=== PATIENT | male | born 1995 | race Caucasian/White ===

== ENCOUNTER 2019-10-21 23:40 | Emergency (ER) | payer OTHER ==
[~2019-10-21] VITALS: Ht 182.9 cm; Wt 95.3 kg
[2019-10-22 00:43] VITALS: BP 136/89
== END 2019-10-22 00:44 | disposition home or self-care (01) ==
LOC: M.ERS 23:40
DX: S91.312A Laceration without foreign body, left foot, initial encounter (principal); F17.200 Nicotine dependence, unspecified, uncomplicated; W26.0XXA Contact with knife, initial encounter; Y92.89 Other specified places as the place of occurrence of the external cause; Y93.89 Activity, other specified; Y99.8 Other external cause status